=== PATIENT | male | born 1955 | race Caucasian/White ===

== ENCOUNTER 2017-04-26 14:00 | Outpatient (CLI) | payer MEDICARE ==
[2017-04-26 16:10] LABS: Anisocytosis MODERATE=16-30 cells (100X) (0-5/hpf); Band 3 % (5-11); Blast 15 % (0-0); Hemoglobin 7.8 g/dL (14.0-18.0); Hypochromia MODERATE=16-30 cells (100X) (0-5/hpf); Lymphocytes 31 % (21-51); MDiff Complete? YES; Mean Corpuscular Hemoglobin 27.7 pg (27.0-31.0); Mean Corpuscular Volume 86.5 fl (80.0-94.0); Mean Platelet Volume 9.9 fL (7.4-10.4); Metamyelocyte 2 % (0-0); Microcytosis MODERATE=15-30 cells (100X) (0-5/hpf); Monocytes 4 % (0-10); Neutrophil 37 % (42-75); Nucleated RBC 6 % (0); PLT Morphology Comment Appears Decreased; Platelet Count 21 thou/uL (130-400); RBC Distribution Width 15.7 % (11.5-14.5); Reactive Lymphocytes 8 % (0-10); Red Blood Cell (RBC) Count 2.82 mill/uL (4.70-6.10); White Blood Cell (WBC) Count 12.7 thou/uL (4.8-10.8)
== END 2017-04-26 14:01 | disposition home or self-care (01) ==
LOC: MADLAB 14:00
PROVIDERS: ATTEND Internal Medicine Hematology & Oncology
DX: D46.9 Myelodysplastic syndrome, unspecified (principal)
CPT/HCPCS: 36415; 85025

== ENCOUNTER 2017-05-04 10:10 | Outpatient (CLI) | payer MEDICARE ==
[2017-05-04 14:30] LABS: Hemoglobin 6.7 g/dL (14.0-18.0); Mean Corpuscular HGB CONC 32.8 g/dL (32.0-36.0); Mean Corpuscular Hemoglobin 28.2 pg (27.0-31.0); Mean Corpuscular Volume 85.9 fL (80.0-94.0); RBC Distribution Width 16.8 % (11.5-14.5); Red Blood Cell (RBC) Count 2.38 mill/uL (4.70-6.10); White Blood Cell (WBC) Count 16.8 thou/uL (4.8-10.8)
[2017-05-04 14:31] LABS: Manual Diff?? YES; Mean Platelet Volume 14.1 fL (7.4-10.4); Platelet Count 10 thou/uL (130-400)
[2017-05-04 14:32] LABS: Band 3 % (5-11); Lymphocytes 50 % (21-51); Monocytes 2 % (0-10); Neutrophil 42 % (42-75)
[2017-05-04 14:33] LABS: Hypochromia MODERATE=16-30 cells (100X) (0-5/hpf); Metamyelocyte 3 % (0-0)
[2017-05-04 14:34] LABS: PLT Morphology Comment Appears Decreased
[2017-05-04 14:35] LABS: Polychromasia MARKED = >4 cells (100X) (0-2/hpf)
[2017-05-04 14:37] LABS: Large Platelets SLIGHT
[2017-05-04 17:49] LABS: MDiff Complete? YES
== END 2017-05-04 10:11 | disposition home or self-care (01) ==
LOC: MADLABSP 10:10
PROVIDERS: ATTEND Internal Medicine Hematology & Oncology
DX: D46.9 Myelodysplastic syndrome, unspecified (principal)
CPT/HCPCS: 85025

== ENCOUNTER 2017-05-10 14:43 | Outpatient (CLI) | payer MEDICARE ==
[2017-05-10 15:48] LABS: Anisocytosis MODERATE=16-30 cells (100X) (0-5/hpf); Band 2 % (5-11); Hypochromia MODERATE=16-30 cells (100X) (0-5/hpf); Lymphocytes 57 % (21-51); MDiff Complete? YES; Mean Corpuscular HGB CONC 31.6 g/dL (32.0-36.0); Mean Corpuscular Hemoglobin 27.8 pg (27.0-31.0); Mean Corpuscular Volume 87.8 fl (80.0-94.0); Mean Platelet Volume 13.1 fL (7.4-10.4); Metamyelocyte 2 % (0-0); Monocytes 1 % (0-10); Myelocyte 1 % (0-0); Neutrophil 37 % (42-75); Nucleated RBC 9 % (0); PLT Morphology Comment Appears Decreased; Platelet Count 27 thou/uL (130-400); Polychromasia SLIGHT = 2-3 cells (100X) (0-2/hpf); RBC Distribution Width 18.7 % (11.5-14.5); Red Blood Cell (RBC) Count 2.87 mill/uL (4.70-6.10); Schistocytes SLIGHT = 2-5 cells (100X) (0-1/hpf); White Blood Cell (WBC) Count 10.8 thou/uL (4.8-10.8)
== END 2017-05-10 14:44 | disposition home or self-care (01) ==
LOC: MADLABSP 14:43
PROVIDERS: ATTEND Internal Medicine Hematology & Oncology
DX: C92.00 Acute myeloblastic leukemia, not having achieved remission (principal)
CPT/HCPCS: 85025

== ENCOUNTER 2017-05-24 17:21 | Outpatient (CLI) | payer MEDICARE ==
[2017-05-25 07:29] LABS: Hemoglobin 7.2 g/dL (14.0-18.0); Mean Corpuscular HGB CONC 30.1 g/dL (32.0-36.0); Mean Corpuscular Volume 96.5 fl (80.0-94.0); Mean Platelet Volume 8.7 fL (7.4-10.4); Red Blood Cell (RBC) Count 2.47 mill/uL (4.70-6.10)
[2017-05-25 07:39] LABS: Anisocytosis MODERATE=16-30 cells (100X) (0-5/hpf); Lymphocytes 64 % (21-51); MDiff Complete? YES; Manual Diff?? YES; Monocytes 15 % (0-10); Neutrophil 21 % (42-75); Poikilocytosis MODERATE=16-30 cells (100X) (0-5/hpf)
[2017-05-25 07:40] LABS: Hypochromia MODERATE=16-30 cells (100X) (0-5/hpf); Schistocytes SLIGHT = 2-5 cells (100X) (0-1/hpf)
[2017-05-25 07:41] LABS: PLT Morphology Comment Appears Decreased
[2017-05-25 07:45] LABS: Platelet Count 20 thou/uL (130-400)
== END 2017-05-24 17:22 | disposition home or self-care (01) ==
LOC: MADLAB 17:21
PROVIDERS: ATTEND Internal Medicine Hematology & Oncology
DX: D46.9 Myelodysplastic syndrome, unspecified (principal)
CPT/HCPCS: 36415; 85025